=== PATIENT | female | born 1945 | race Caucasian/White ===

== ENCOUNTER 2020-06-21 02:18 | Emergency (ER) | payer MEDICARE, BC ==
[2020-06-21] MEDS ORDERED: Cephalexin 250 MG CAP ONE (02:50)
== END 2020-06-21 02:55 | disposition home or self-care (01) ==
LOC: BURERS 02:18
DX: L03.116 Cellulitis of left lower limb (principal); L03.115 Cellulitis of right lower limb; L03.113 Cellulitis of right upper limb; L03.114 Cellulitis of left upper limb
CPT/HCPCS: 99283

== ENCOUNTER 2020-06-26 00:45 | Emergency (ER) | payer MEDICARE, BC ==
[2020-06-26] MEDS ORDERED: predniSONE 20 MG TAB ONE (01:21)
[2020-06-26] MEDS ORDERED: Sulfameth/Trimethoprim DS 800-160mg TAB ONE (01:21)
== END 2020-06-26 01:35 | disposition home or self-care (01) ==
LOC: BURERS 00:45
DX: L30.9 Dermatitis, unspecified (principal)
CPT/HCPCS: 99282; J7512